=== PATIENT | female | born 1935 | race Caucasian/White ===

== ENCOUNTER → 2017-12-12 | Outpatient (CLI) | payer OTHER ==
[~2017-12-12] MED LIST: Ascorbic Acid,Ester- PO; CELEBREX200 MG PO; Ecotrin PO; Feosol PO; Glucosamine/Chondroi PO; Norvasc PO; Omega III EPA + DHA PO; PRAVACHOL40 MG PO; Pravachol PO; PriLOSEC PO; SENOKOT S,PE1 TABLET PO; Vicodin,Lortab 5/500 PO; Vicodin,Norco 5/325 PO
== END | disposition home or self-care (01) ==
LOC: RAD 09:41
DX: I65.23 Occlusion and stenosis of bilateral carotid arteries (principal)
CPT/HCPCS: 93880